=== PATIENT | male | born 1985 | race Caucasian/White ===

== ENCOUNTER 2017-08-08 11:45 | Emergency (ER) | payer BC, SELFPAY ==
[2017-08-08 11:46] VITALS: BP 148/85; PULSE 65; RESP 18; TEMP 36.6; O2SAT 98; BMI 34.0
--- NOTE | 2017-08-08 12:22 | ED.DCSUM_ITS ---
- ER Visit Summary Date of Service: 08/08/17 Chief Complaint: Left eye pain History of Present Illness: The patient is a 31 M who states that he was playing basketball yesterday when a finger poked him in the left eye. Patient states since that time he has had blurry vision pain and watering eyes. He wears corrective lenses for reading. 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 Physical Examination: afebrile vital signs are stable Gen: Well-nourished well-developed Head: Normocephalic atraumatic Eyes: Perrl EOMI there is a left corneal abrasion. Please see T-sheet for details. ENT: TMs clear no rhinorrhea moist mucous membranes Neck: Supple no lymphadenopathy no JVD nontender CVS: Regular rate rhythm no murmurs normal S1-S2 Respiratory: No distress clear to auscultation bilaterally chest nontender Abdomen: Soft nontender nondistended normal bowel sounds no masses Back: Nontender Extremity: Nontender no edema Skin: Normal color no rash Neuro: alert orientated ?3 CN II-XII intact normal strength sensation reflexes gait cerebellar Psych: Normal affect normal mood Emergency Department Course and Treatment: Patient received tetracaine which improved his discomfort. He will be placed on gentamicin ophthalmic drops. Cool washcloth anti-inflammatories. Follow-up with his eye doctor in 72 hours. Impression: 1. Left corneal abrasion This note was generated with [employer] dictation software. It may contain incorrect words, spelling, and punctuation that were not noted in review of the chart prior to signing ED Disposition - Plan for ED Patient: Chief Complaint: Eye Problem Instructions: ED Eye Injury Corneal Abrasion Additional Instructions: Follow-up with your eye doctor in 72 hours to ensure resolution of symptoms. Cool washcloth Motrin 800 mg as needed for pain. Gentamicin eyedrops are 2 drops 4 times a day for 5 days
[2017-08-08] MEDS: Gentamicin Sulfate 1 OPTH.BTL 2 DRP LEFT EYE (12:42)
[2017-08-08] MEDS: Fluorescein 1 MG STRIP 1 STRIP LEFT EYE (12:44)
[2017-08-08] MEDS: Tetracaine 0.5% Ophthalmic Bottle 1 DRP LEFT EYE (12:44)
== END 2017-08-08 12:47 | disposition home or self-care (01) ==
PROVIDERS: Emergency Provider Emergency Medicine; Family Provider Family Medicine; PCP Family Medicine
DX: S05.02XA Injury of conjunctiva and corneal abrasion without foreign body, left eye, initial encounter (principal); W50.0XXA Accidental hit or strike by another person, initial encounter; Y93.67 Activity, basketball; Y92.9 Unspecified place or not applicable; Y99.8 Other external cause status
CPT/HCPCS: 99284